=== PATIENT | female | born 1975 | race American Indian/Alaskan Native ===

== ENCOUNTER 2016-07-15 17:49 | Emergency (ER) | payer MEDICAID ==
[2016-07-15 18:55] LABS: Basophils % (Auto) 0.5 % (0.0-1.8); Eosinophils % (Auto) 2.3 % (0.0-4.3); Hematocrit 40.7 % (30.3-42.9); Hemoglobin 13.4 gm/dl (10.1-14.3); Mean Corpuscular HGB Conc 33 % (30-34); Mean Corpuscular Hemoglobin 29 pg (28-32); Mean Corpuscular Volume 88 fl (79-97); Platelet Count 246 K/mm3 (140-440); Red Blood Count 4.65 M/mm3 (3.65-5.03); Red Cell Distribution Width 15.3 % (13.2-15.2); White Blood Count 8.1 K/mm3 (4.5-11.0)
[2016-07-15 19:08] LABS: Alanine Aminotransferase 9 units/L (7-56); Albumin 3.9 g/dL (3.9-5); Albumin/Globulin Ratio 1.3 %; Alkaline Phosphatase 48 units/L (35-129); Anion Gap 16 mmol/L; BUN/Creatinine Ratio 14.44; Bilirubin,Total 0.2 mg/dL (0.1-1.2); Blood Urea Nitrogen 13 mg/dL (7-17); Calcium 8.9 mg/dL (8.4-10.2); Carbon Dioxide 24 mmol/L (22-30); Chloride 101.9 mmol/L (98-107); Glucose 82 mg/dL (65-100); Potassium 3.6 mmol/L (3.6-5.0); Sodium 138 mmol/L (137-145)
--- NOTE | 2016-07-16 04:26 | Emergency Department Report ---
ED Dizziness HPI - General Chief Complaint: High BP Stated Complaint: HIGH BP/LIGHTHEADED/DIZZINESS/171/111 Time Seen by Provider: 07/16/16 03:57 Source: patient Mode of arrival: Ambulatory Limitations: No Limitations - History of Present Illness Initial Comments: Patient is a 41-year-old female with a history of GERD only presenting with a complaint of hypertension. She reports she was sitting at home today when she felt lightheaded, dizzy and overall did not feel well and proceeded to take her blood pressure which read a systolic in the 170s. Patient reports she has no history of hypertension and was concerned because her blood pressure has never been that high. Associated intermittent chest pain, which patient reports is similar to her GERD-like symptoms. Otherwise no fevers, chills, NVD, SOB, abd pain, trauma, hemoptysis, DVT or PE history, hormone therapy, travel, or sick contacts MD Complaint: dizziness, lightheadedness, other (intermittent chest pain) Timing: gradual onset Description: lightheadedness History of Same: No History of Trauma: No Severity: mild Improves With: nothing Worsens With: nothing - Related Data Home Medications Medication Instructions Recorded Confirmed Last Taken Omeprazole [Prilosec] 10 mg PO QDAY 11/08/13 07/16/16 07/15/16 Allergies Allergy/AdvReac Type Severity Reaction Status Date / Time No Known Allergies Allergy Verified 11/08/13 11:59 ED Review of Systems ROS: Stated complaint: HIGH BP/LIGHTHEADED/DIZZINESS/171/111 Other details as noted in HPI Comment: All other systems reviewed and negative ED Past Medical Hx - Past Medical History Previous Medical History?: Yes Hx GERD: Yes Additional medical history: GERD - Surgical History Past Surgical History?: Yes Additional Surgical History: tubal ligation - Social History Smoking Status: Former Smoker Substance Use Type: Alcohol - Medications Home Medications: Home Medications Medication Instructions Recorded Confirmed Last Taken Type Omeprazole [Prilosec] 10 mg PO QDAY 11/08/13 07/16/16 07/15/16 History ED Physical Exam - General Limitations: No Limitations General appearance: alert, in no apparent distress - Head Head exam: Present: atraumatic, normocephalic - Eye Eye exam: Present: normal appearance - ENT ENT exam: Present: mucous membranes moist - Neck Neck exam: Present: normal inspection - Respiratory Respiratory exam: Present: normal lung sounds bilaterally. Absent: respiratory distress - Cardiovascular Cardiovascular Exam: Present: regular rate, normal rhythm. Absent: systolic murmur, diastolic murmur, rubs, gallop - GI/Abdominal GI/Abdominal exam: Present: soft, normal bowel sounds - Extremities Exam Extremities exam: Present: normal inspection - Back Exam Back exam: Present: normal inspection - Neurological Exam Neurological exam: Present: alert, oriented X3 - Psychiatric Psychiatric exam: Present: normal affect, normal mood - Skin Skin exam: Present: warm, dry, intact, normal color. Absent: rash ED Course Vital Signs 07/15/16 07/15/16 07/16/16 18:14 23:53 03:53 Temperature 98.5 F 98.0 F Pulse Rate 80 75 75 Respiratory 18 18 10 L Rate Blood Pressure 167/108 147/101 154/89 O2 Sat by Pulse 99 100 99 Oximetry 07/16/16 07/16/16 03:54 04:00 Temperature 98.4 F Pulse Rate Respiratory 18 Rate Blood Pressure O2 Sat by Pulse 96 Oximetry ED Medical Decision Making - Lab Data Result diagrams: 07/15/16 18:30 07/15/16 18:30 - EKG Data -: EKG Interpreted by Me ([id number]) EKG shows normal: sinus rhythm, axis (normal axis), intervals (QTc:500ms), ST-T waves ((-)ST/T changes, No STEMI) Rate: tachycardia (102 bpm) Critical care attestation.: If time is entered above; I have spent that time in minutes in the direct care of this critically ill patient, excluding procedure time. ED Disposition Clinical Impression: Dizziness, Hypertension Disposition: DISCHARGED TO HOME OR SELFCARE Is pt being admited?: No Condition: Stable Instructions: Hypertension (ED), Dizziness (ED) Referrals: PRIMARY CARE,MD [Primary Care Provider] - 3-5 Days
[2016-07-16 07:03] VITALS: BP 130/84
== END 2016-07-16 06:10 | disposition home or self-care (01) ==
LOC: ED 17:49
DX: I10 Essential (primary) hypertension (principal); R42 Dizziness and giddiness; K21.9 Gastro-esophageal reflux disease without esophagitis; Z87.891 Personal history of nicotine dependence
CPT/HCPCS: 36415; 80053; 83735; 84439; 84443; 84702; 85025; 93005; 93010; 99283